=== PATIENT | male | born 1950 | race Caucasian/White ===

== ENCOUNTER 2016-10-18 12:25 | Emergency (ER) | payer MEDICARE ==
[2016-10-18] MEDS ORDERED: TETANUS IMMUNE GLOBULIN 250 UNIT IM ONE (13:49)
[2016-10-18] MEDS ORDERED: INSULIN REGULAR HUMAN 100 UNITS/ML ML ONE (14:05)
--- NOTE | 2016-10-18 14:07 | ER NURSING DOCUMENTATION ---
Nurse's Notes [facility] Name:Rg Nixon Age:66 yrs Sex:Male :1950 Arrival Date:10/18/2016 Time:12:25 BedTriage Private MD: Diagnosis:Medical Screening Exam-Non Urgent Presentation: 10/18 13:09 Presenting complaint: Patient states: I got go off my horse last Wednesday. Transition cb of care: No. 13:09 Method Of Arrival: Private Vehicle cb 13:09 Acuity: [place] 4 cb Triage Assessment: 13:13 General: Appears in no apparent distress, well groomed, Behavior is cooperative. Pain: cb Denies pain. EENT: No deficits noted. Neuro: Level of Consciousness is awake, alert, Oriented to person, place, time, event. Cardiovascular: Pulses are 2+ in right radial artery. Respiratory: Airway is patent Trachea midline Respiratory effort is even, unlabored, Respiratory pattern is regular, symmetrical. GI: Reports tolerance of fluids, tolerance of food. : No deficits noted. Derm: Skin old laceration of R thumb with scab formation which swollen this morning but no redness or warmth noted. Musculoskeletal: No deficits noted. Injury Description: horse injury to thumb only. Historical: - Allergies: No known drug Allergies; - Home Meds: 1. BP medications - PMHx: anti-anxiety meds @ [place]; Hypertension; - PSHx: Knee surgery (2016); elbow surgery (2016); foot surgery (2013); - Tetanus: < 10 years. - Ebola Screening: : Patient negative for fever greater than or equal to 101.5 degrees Fahrenheit, and additional compatible Ebola Virus Disease symptoms. Patient denies exposure to infectious person. Patient denies travel to an Ebola-affected area in the 21 days before illness onset. No symptoms or risks identified at this time. . - Immunization history: Flu Vaccine None. - Social history: Smoking status: Patient uses tobacco products, current every day smoker. Patient uses alcohol on a daily basis. Screenin:16 Infectious Disease Risk None. Abuse screen: Denies threats or abuse. Denies injuries cb from another. Nutritional screening: No deficits noted. Vital Signs: 12:37 BP 152 / 90; Pulse 66; Resp 16; Temp 98.7; Pulse Ox 97% ; Weight 65.77 kg; Height 5 ft. jt 11 in. (180.34 cm); Pain 0/10; 12:37 Body Mass Index 20.22 (65.77 kg, 180.34 cm) jt ED Course: 12:27 Patient arrived in ED. jt 12:38 Jesus Samson MD is Attending Physician. 13:08 Yesi Montelongo RN is Primary Nurse. cb 13:10 Triage completed. cb 13:16 Valuables Remains with patient Patient has correct armband on for positive cb identification. Call light in reach. Administered Medications: 13:30 Drug: Tetanus Immune Globulin 250 units; {Bobbin Cleaner: [email or web address]. Exp: cb 12/21/2018. Lot #: [id number]. } Route: IM; Site: left deltoid; 15:33 Follow up: Response: No adverse reaction cb 13:30 Drug: Adacel 0.5 ml; {Bobbin Cleaner: [employer]. Exp: 02/06/2017. Lot #: [id number]. } Route: IM; Site: right deltoid; 15:33 Follow up: Response: No adverse reaction cb Outcome: 13:46 Discharge ordered by . keanu 14:05 Discharged to [facility] 14:05 Condition: good 14:05 Discharge Assessment: Patient awake, alert and oriented x 3. No cognitive and/or functional deficits noted. Patient verbalized understanding of disposition instructions. 14:05 Discharge instructions given to patient, Instructed on discharge instructions, Demonstrated understanding of 14:06 Patient left the ED. cb Signatures: Yesi Montelongo RN RN cb Meyer, John, MD MD jm Tennant, Joanne
--- NOTE | 2016-10-18 14:07 | ER PHYSICIAN DOCUMENTATION ---
Physician Documentation [facility] Name:Rg Nixon Age:66 yrs Sex:Male :1950 Arrival Date:10/18/2016 Time:12:25 [facility] Private MD: Jesus Martínez Disposition: 10/18/16 13:46 Discharged to Home/Self Care. Impression: Medical Screening Exam-Non Urgent. - Condition is Good. - Discharge Instructions: MEDICAL SCREENING EXAM, NonUrgent. - Medical Reconciliation form form. - Follow up: Private Physician; When: Upon discharge from the Emergency Department; Reason: Continuance of care. - Problem is new. - Symptoms have improved. HPI: 10/18 14:55 This 66 yrs old Male presents to ER via Private Vehicle with complaints of jm TDAP, TETANUS IGG. 14:55 The patient or guardian reports injury, wound. Pt sent here for TDAP and Tetanus IGG . jm Historical: - Allergies: No known drug Allergies; - Home Meds: 1. BP medications - PMHx: anti-anxiety meds @ [place]; Hypertension; - PSHx: Knee surgery (2016); elbow surgery (2016); foot surgery (2013); - Tetanus: < 10 years. - Ebola Screening: : Patient negative for fever greater than or equal to 101.5 degrees Fahrenheit, and additional compatible Ebola Virus Disease symptoms. Patient denies exposure to infectious person. Patient denies travel to an Ebola-affected area in the 21 days before illness onset. No symptoms or risks identified at this time. . - Immunization history: Flu Vaccine None. - Social history: Smoking status: Patient uses tobacco products, current every day smoker. Patient uses alcohol on a daily basis. ROS: 14:55 MS/extremity: Positive for injury or acute deformity. jm 14:55 Skin: Positive for cellulitis. Exam: 14:55 Constitutional: The patient appears alert, awake. 14:55 Musculoskeletal/extremity: Extremities: grossly normal except: noted in the palmar aspect of proximal phalanx of right thumb: abrasion, scab noted to the R thumb w surrounding cellulitis. , ROM: intact in all extremities. 14:55 Psych: Behavior/mood is pleasant, cooperative, Affect is calm. Vital Signs: 12:37 BP 152 / 90; Pulse 66; Resp 16; Temp 98.7; Pulse Ox 97% ; Weight 65.77 kg; Height 5 ft. jt 11 in. (180.34 cm); Pain 0/10; 12:37 Body Mass Index 20.22 (65.77 kg, 180.34 cm) jt MDM: 12:38 Patient medically screened. keanu 14:57 Differential diagnosis: cellulitis w need for tetanus. Data reviewed: vital signs, jm nurses notes, and as a result, I will discharge patient. Counseling: I had a detailed discussion with the patient and/or guardian regarding: the historical points, exam findings, and any diagnostic results supporting the discharge/admit diagnosis, the need for outpatient follow up, with the patient's primary care provider. Dispensed Medications: 13:30 Drug: Tetanus Immune Globulin 250 units; {Senior It Assistant: [employer]. Exp: cb 12/21/2018. Lot #: [id number]. } Route: IM; Site: left deltoid; 15:33 Follow up: Response: No adverse reaction cb 13:30 Drug: Adacel 0.5 ml; {Senior It Assistant: [employer]. Exp: 02/06/2017. Lot #: [id number]. } Route: IM; Site: right deltoid; 15:33 Follow up: Response: No adverse reaction cb Signatures: Yesi Montelongo RN RN cb Meyer, John, MD MD jm
[2016-10-18] MEDS ORDERED: DIPH,PERTUSS(ACELL),TET VAC/PF 0.5 ML VIAL IM ONE (15:34)
== END 2016-10-18 14:07 | disposition home or self-care (01) ==
LOC: ER 12:25
DX: L03.011 Cellulitis of right finger (principal); S60.3 Other superficial injuries of thumb; Z23 Encounter for immunization; F17.210 Nicotine dependence, cigarettes, uncomplicated; Z79.899 Other long term (current) drug therapy
CPT/HCPCS: 90471; 96372; 99283; J1670; J1815